=== PATIENT | male | born 1990 | race African-American/Black ===

== ENCOUNTER 2016-10-20 12:56 | Emergency (ER) | payer OTHER ==
[2016-10-20 14:16] VITALS: BP 133/84
== END 2016-10-20 14:16 | disposition home or self-care (01) ==
LOC: ED 12:56
DX: S86.011A Strain of right Achilles tendon, initial encounter (principal); M10.9 Gout, unspecified; R03.0 Elevated blood-pressure reading, without diagnosis of hypertension; J45.909 Unspecified asthma, uncomplicated; Z79.899 Other long term (current) drug therapy; Y93.A1 Activity, exercise machines primarily for cardiorespiratory conditioning; Y92.89 Other specified places as the place of occurrence of the external cause; Y99.8 Other external cause status